=== PATIENT | male | born 1980 | race Caucasian/White ===

== ENCOUNTER 2016-04-13 13:46 | Emergency (ER) | payer OTHER ==
[2016-04-13 14:25] VITALS: BP 143/93; PULSE 65; RESP 16; O2SAT 98
--- NOTE | 2016-04-13 15:26 | ED.REPORT ---
HPI-Trauma Minor / Fall Date of Service Apr 13, 2016 ED Provider: Za Hong MD Pt is a 35 y/o male w/ a hx of HTN, diabetes, presenting to the ED due to mild head injury which occurred 2 hours ago. He bumped his head on a cupboard and heard a crack. The crack concerned him enough to be seen. The bleeding is controlled. He denies headache, LOC, vomiting. He is not anticoagulated. His last tetanus shot was last year. There are no other injuries or complaints. Nursing Notes Stated Complaint: HEAD LACERATION Chief Complaint: Head, Face, Neck Trauma Nursing Notes Reviewed: Yes Allergies: Coded Allergies: Penicillins (Verified Allergy, Severe, ANAPHLACTIC, 04/13/16) Sulfa (Sulfonamide Antibiotics) (Verified Allergy, Intermediate, BODY RASH , 04/13/16) General Time Seen by MD: 15:13 Chief Complaint Head injury Hx Obtained From: Patient Arrived By: Walk-in Onset Occurred: 1 - 4 hours ago Symptom Duration: Since onset Severity: Current: No pain currently Severity: Maximum: No pain Similar Sx Previous: No Past Medical History Past Medical History HTN Diabetes Chronic back pain Past Surgical History None reported Smoking History Unknown if Ever Smoker Ambulatory Status Independent Review of Systems Neurologic: Denies: Change LOC, Confusion, Dizziness, Focal weakness, Headache , Lightheaded, Numbness, Problem walking, Syncope Complete sys rev & neg: except as marked. GI: Denies: Nausea, Vomiting Physical Exam Initial Vital Signs Vital Signs (First) Date Time Temp Pulse Resp B/P Pulse Ox O2 Delivery O2 Flow Rate FiO2 04/13/16 14:25 36.2 65 16 143/93 98 Initial VS: Reviewed, Vital signs normal ENT: Mucous membranes moist, Conjunctiva normal, No scleral icterus Respiratory: Breath sounds normal, Clear to auscultation, No respiratory distress Cardiovascular: Regular rate & rhythm, Heart sounds normal, Intact distal pulses Abdomen / GI: Soft Extremities: Vascular intact, Neuro intact, No swelling, No tenderness Skin: Warm, Dry, No cyanosis Neurologic: Alert, Oriented, Nonfocal Psychiatric: Mood/affect normal, Behavior normal, Normal thought content General/Constitutional: Awake, Alert, No acute distress, Well appearing, Cooperative, Not toxic appearing Neck: Atraumatic, Supple, Full range of motion, No midline vertebral tend Head / Eyes: Normocephalic, PERRL, EOMI 1.5 cm partial thickness laceration. Bleeding controlled No significant contusion No bony tenderness Procedures Laceration Management Time: 15:50 Procedure Performed by: ED physician Consent / Setup / Site Prep: Consent from patient, Time-out performed, Hand hygiene observed, Stand sterile technique Location of Wound: See Physical exam Wound Length: 2 cm Debridement: None Undermining / Margins: Flaps aligned Repair Skin: Dermabond Closure Layers: 1 Suture Technique: Simple Post-Procedure / Complications: No complications, Condition improved, Tolerated procedure well, Patient stable Re-Eval/Medical Decision Re-Evaluation/Progress : Time of Eval: 16:19 Re-Evaluation/Progress Note: Pt rechecked. Informed pt of plan for treatment. Pt understands and agrees with plan for treatment. F/U and RTER warnings given. All questions addressed. Counseled Regarding: Diagnosis, Need for follow-up, When/why to return to ED Discharge & Departure Impression: Primary Impression: Scalp laceration Encounter type: initial encounter Qualified Code: S01.01XA - Laceration without foreign body of scalp, initial encounter Disposition: Home Discharge Condition All VS Reviewed: Yes Condition: Stable Additional Instructions: You had a scalp laceration today. Try to leave the glued area alone for at least 3 days. If it does come off earlier, you will be ok. Based on your physical exam and interview, I do not suspect there is any brain injury or skull fracture. You should return to the emergency department if you experience a severe or persistent headache, vomiting, confusion, loss of consciousness, vision change, or other concerning signs or symptoms. Careful of those cupboards! It is easy to hit them without hair to protect you:) Follow up with your primary doctor as regularly scheduled. Hope you heal up perfectly. Referrals: Thomas Avilez DO (PCP) [facility] Portions of this note were transcribed by Gelacio Guerrero. I, Dr. Hong personally performed the history, physical exam and medical decision-making; I reviewed and confirmed the accuracy of the information in the transcribed note. Signed by Daria Kimble, 04/13/15 - [id number] copies to: Thomas vAilez Shawna L MD Apr 13, 2016 15:26 GELACIO GUERRERO Apr 13, 2016 15:31
[2016-04-13] MEDS ORDERED: Tissue Adhesive Liq (CS Supplied) TOPICAL ONE (15:30)
== END 2016-04-13 16:25 | disposition home or self-care (01) ==
LOC: SED 13:46
DX: S01.01XA Laceration without foreign body of scalp, initial encounter (principal); W22.8XXA Striking against or struck by other objects, initial encounter; Y93.89 Activity, other specified; Y92.89 Other specified places as the place of occurrence of the external cause; Y99.8 Other external cause status; I10 Essential (primary) hypertension; E11.9 Type 2 diabetes mellitus without complications; Z88.0 Allergy status to penicillin; Z88.2 Allergy status to sulfonamides